=== PATIENT | male | born 1945 | race Caucasian/White ===

== ENCOUNTER 2018-07-26 07:13 | Day surgery (SDC) | payer MEDICARE, OTHER, SELFPAY ==
[2018-07-26 08:08] VITALS: BMI 22.9
[2018-07-26 08:14] VITALS: BP 137/73; PULSE 77; RESP 15; TEMP 36.4; O2SAT 98
[2018-07-26] MEDS: SODIUM CHLORIDE 0.9% 1,000 ML 21 ML IV (08:18)
--- NOTE | 2018-07-26 08:49 | PM.HP.1 ---
History of Present Illness Date Patient Seen: 07/26/18 Time Patient Seen: 08:50 Chief complaint: colonoscopy [id number] Narrative: Very pleasant and remarkably healthy 73-year-old gentleman presents for a surveillance colonoscopy. He reports the last colonoscopy was in 2012 and he had a polyp removed in the left colon at that time. Before that in 2006 he also had polyps. He has been on the every 5 year schedule for sometime now. He denies any new problems or symptoms related to the function of his GI tract. He denies any unexplained weight loss and reports he needs colonoscopy as part of his health maintenance program. Patient History Family & Social History Family History: Reviewed 07/26/18 by Gretchen Bustamante MD Social History: household members spouse Meds Home Medications Medication Instructions Recorded Confirmed Type glucosamine sulfate-msm 1,500 mg PO DAILY #0 09/12/16 07/26/18 History multivitamin [Multiple Vitamins] 1 tab PO QDAY #0 09/12/16 07/26/18 History omega 0-mjg-ocd-fish oil [Fish Oil] 350 mg PO DAILY #0 09/12/16 07/26/18 History Allergies Allergy/AdvReac Type Severity Reaction Status Date / Time No Known Drug Allergies Allergy Verified 07/26/18 08:05 Review of Systems Review of Systems All systems reviewed & are unremarkable except as noted in HPI and below Exam Vital Signs (past 8 hours): - 07/26/18 08:14 Temperature 97.6 F Pulse Rate 77 Respiratory Rate 15 Blood Pressure 137/73 Pulse Oximetry 98 Oxygen Delivery Method Room Air Narrative Exam Narrative: Very pleasant well-nourished well-developed gentleman. He appears much younger than his stated age. HEENT: Normocephalic and atraumatic, pupils equal round react to light accommodation with anicteric sclera Lungs: Clear to auscultation bilaterally Heart: Regular rate and rhythm without murmur rub or gallop Abdomen: Soft, nontender, active bowel sounds Extremities: Warm well perfused without edema Assessment & Plan Plan: Assessment/Plan Narrative: Very pleasant gentleman here for a screening colonoscopy. He has a personal history of colon polyps and his family history is otherwise negative for colon cancer. We discussed the risks and benefits of the procedure today and he has expressed desire to complete it.
[2018-07-26] MEDS: MIDAZOLAM 5 MG/5 ML VIAL IV (09:03)
[2018-07-26] MEDS: fentaNYL 250 MCG/5 ML INJ IV (09:04)
--- NOTE | 2018-07-26 09:13 | PM.OP.1 ---
Operative Date/Time/Diagnoses Date of procedure: 07/26/18 Time of procedure: 09:13 Pre-op diagnosis: Screening Post-op diagnosis: same Procedure & Clinicians Procedure: Colonoscopy to the Cecum Same procedure as scheduled: Yes Indications: Personal history of colon polyps Last colonoscopy 2012 Surgeon: Gretchen Bustamante Click Yes if Unassisted: Yes Anesthesia Type: Sedation (Versed 7 mg; fentanyl 250 mcg) Operative Notes Findings: 1. Excellent prep 2. No polyps or mass lesions 3. Tortuous sigmoid and transverse colons 4. Grade 2 internal hemorrhoids 5. Moderately decreased anal sphincter tone 6. Normal prostate examination. The surface is smooth and without gross nodularity Closure Type: not applicable Specimen(s): none sent Procedure in detail: After obtaining informed consent, the patient was brought to the GI suite and placed in the left lateral decubitus position on the examination table. After placement of appropriate monitors, the patient was given incremental doses of Versed and Fentanyl until an appropriate level of sedation was achieved. A time out was held per SCOAP protocol. A digital rectal examination was performed and did not reveal any masses or obstructing lesions. The colonoscope was gently passed into the patient's anus and the entire colon navigated to the level of the cecum with moderate difficulty due to colon tortuosity. Multiple changes of position were required to reach the cecum.. Once in the cecum, the scope was withdrawn being sure to go before and beyond all mucosal folds and prominences and get an excellent examination. The findings are noted above. At the level of the rectal vault, the scope was retroflexed and the internal anal canal was examined. The scope was straightened and air aspirated from the colon. The instrument was removed from the patient's body and the procedure was concluded. The patient was allowed to awaken from sedation without difficulty and taken to the post-anesthesia care unit in good condition. Total sedation time 23 min Total withdrawal time 9 min Complications: none Condition: stable Disposition: PACU Plan for aftercare: 1. Discharge to home 2. Plan for next colonoscopy in 5 years or as clinically indicated
[2018-07-26 09:17] VITALS: BP 121/65; PULSE 83; RESP 10; TEMP 36.5; O2SAT 97
[2018-07-26 09:22] VITALS: BP 118/66; PULSE 87; RESP 10; O2SAT 94
[2018-07-26 09:27] VITALS: BP 129/62; PULSE 90; RESP 12; TEMP 36.9; O2SAT 95
[2018-07-26 09:41] VITALS: BP 122/68; PULSE 77; RESP 16; TEMP 36.7; O2SAT 95
--- NOTE | 2018-07-26 09:49 | SUR.PHASEII ---
brought in, vss, ready to go, all voiced an understand, pt dressed with assist of and left in stable condition,
== END 2018-07-26 09:49 | disposition home or self-care (01) ==
PROVIDERS: PCP Family Medicine; Visit Provider Surgery
PROC: 0DJD8ZZ Inspection of Lower Intestinal Tract, Via Natural or Artificial Opening Endoscopic (ICD-10-PCS; CPT 45378; principal; 2018-07-26 08:45)
DX: Z86.010 Personal history of colon polyps (principal); K64.1 Second degree hemorrhoids
CPT/HCPCS: G0105; 99152; 99153; J2250; J3010

== ENCOUNTER → 2021-07-28 12:39 | Outpatient (CLI) | payer MEDICARE, OTHER, SELFPAY ==
--- NOTE | 2021-07-28 12:43 | DI.RAD.S_ITS ---
PROCEDURE: XR SHOULDER RT MIN 2V INDICATIONS: BI SHOULDER PAIN TECHNIQUE: 3 views of the shoulder were acquired. COMPARISON: [facility], , SHOULDER MINIMUM 2VIEW RIGHT, 08/26/2015, 10:50. FINDINGS: Bones: No fractures or dislocations. No suspicious bony lesions. Visualized ribs appear intact. Moderate acromioclavicular and mild glenohumeral degenerative narrowing. No erosions. Soft tissues: No suspicious soft tissue calcifications. 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 Dictated by: Henna Vieira M.D. on 07/28/2021 at 15:15 Approved by: Henna Viiera M.D. on 07/28/2021 at 15:16
--- NOTE | 2021-07-28 12:43 | DI.RAD.S_ITS ---
PROCEDURE: XR SHOULDER LT MIN 2V INDICATIONS: BI SHOULDER PAIN TECHNIQUE: 3 views of the shoulder were acquired. COMPARISON: [facility], , SHOULDER MINIMUM 2VIEW RIGHT, 08/26/2015, 10:50. FINDINGS: Bones: No fractures or dislocations. No suspicious bony lesions. Visualized ribs appear intact. Moderate bilateral acromioclavicular and mild glenohumeral degenerative narrowing. Soft tissues: No suspicious soft tissue calcifications. IMPRESSION: Degenerative narrowing as above. Dictated by: Henna Vieira M.D. on 07/28/2021 at 15:14 Approved by: Henna Vieira M.D. on 07/28/2021 at 15:15
== END ==
PROVIDERS: PCP Family Medicine; Referring Provider Family Medicine; Visit Provider Family Medicine
DX: M25.511 Pain in right shoulder (principal); M25.512 Pain in left shoulder
CPT/HCPCS: 73030

== ENCOUNTER → 2022-10-04 09:28 | Outpatient (CLI) | payer OTHER, SELFPAY ==
--- NOTE | 2022-10-04 | DI.NM.S_ITS ---
PROCEDURE: NM LALITA PERF SPECT REST & STR Rest and exercise myocardial perfusion SPECT with gated imaging and ejection fraction RADIOPHARMACEUTICAL: 26.6 mCi Tc-99m sestamibi IV at rest and 26.0 mCi Tc-99m sestamibi IV at peak exercise. A two day-protocol was performed. INDICATIONS: CHEST PAIN TECHNIQUE: Radiopharmaceutical was injected at peak stress test, and also at rest. SPECT images were obtained. SPECT myocardial perfusion images were displayed in short axis, horizontal long axis, and vertical long axis views. Gated images were reviewed using [employer] software. COMPARISON: None. CARDIAC STRESS: A standard Guillermo treadmill exercise tolerance test was performed by the patient under the supervision of an attending staff. The patient exercised for 7 minutes and 30 seconds; functional aerobic impairment (CHASTITY) is -28%. Hemodynamic data: There is normal blood pressure and heart rate response to exercise stress. Patient achieved 100% of maximum predicted heart rate at peak exercise. Symptoms: Patient denied chest pain during exercise. EKG: No diagnostic EKG changes of ischemia; frequent PVCs at peak exercise. FINDINGS: Raw data: There is good myocardial labeling by radiotracer. No significant motion artifacts. Left ventricle function: Gated images demonstrate normal left ventricle wall thickening. No segmental wall motion abnormality. No transient ischemic dilation; TID is 0.94 (normal less than 1.3). The left ventricle resting end-diastolic volume is 176 mL. Left ventricle stress ejection fraction is 62%; normal values are above 45%. Myocardial perfusion: There is a mildly intense fixed apical defect that is consistent with apical thinning defect but old small non-transmural infarction can't be excluded definitively. No ischemia. SSS 1. Prone images not done due to inadequate time. IMPRESSION: Low risk, probably normal treadmill nuclear stress test. 1) There is a mildly intense fixed apical defect that is consistent with apical thinning defect but old small non-transmural infarction can't be excluded definitively. No ischemia. SSS 1. Prone images not done due to inadequate time. 2) Enlarged left ventricle (resting EDV 176cc) with normal wall motion, and normal systolic function (EF post stress 62%). 3) No diagnostic ST changes with exercise. 4) Frequent PVCs at peak exercise. 5) No angina during the study. 6) Good exercise capacity (8.3METs, CHASTITY -28%). Target heart rate achieved. Appropriate BP response to exercise. 7) No prior nuclear stress test available for comparison. Dictated by: Marti Cordova MD on 10/05/2022 at 13:17 Approved by: Marti Cordova MD on 10/05/2022 at 13:21
[2022-10-04 10:15] LABS: COVID19 -Nasal RAPID Negative (Negative)
== END ==
PROVIDERS: PCP Family Medicine; Referring Provider Family Medicine; Visit Provider Family Medicine
DX: Z20.822 Contact with and (suspected) exposure to COVID-19; R07.9 Chest pain, unspecified
CPT/HCPCS: 78452; 87635; 93017; A9502

== ENCOUNTER → 2024-05-27 11:55 | Outpatient (CLI) | payer OTHER, SELFPAY ==
[2024-05-27 12:45] LABS: COVID-19 CEPHEID 4-PLEX PCR Negative (Negative); Influenza A - CEPHEID Flu A NEGATIVE (NEGATIVE); Influenza B - CEPHEID Flu B NEGATIVE (NEGATIVE); Respiratory Syncytial Virus Negative (Negative)
== END ==
PROVIDERS: PCP Family Medicine; Visit Provider Student in an Organized Health Care Education/Training Program
DX: R05.1 Acute cough (principal)
CPT/HCPCS: 0241U; 87070

== ENCOUNTER → 2024-05-27 12:36 | Outpatient (CLI) | payer OTHER, SELFPAY ==
--- NOTE | 2024-05-27 12:37 | DI.RAD.S_ITS ---
PROCEDURE: XR CHEST 2V INDICATIONS: cough, upper respiratory infection x 2wk, neg covid test at home, per notes TECHNIQUE: 2 views of the chest were acquired. COMPARISON: None. FINDINGS: [id number] bilateral diffuse peribronchial thickening with patchy opacities in the lower lobes some of which may be related to expiratory result and subsegmental atelectasis however given the history, bronchitis, viral infection, bronchopneumonia or other process could be considered. Mild pectus excavatum appearance of the chest. Mild degenerative changes of the thoracic spine. No pneumothorax, no pleural effusion, no lobar consolidation. Cardiopericardial silhouette and pulmonary vasculature within normal limits. IMPRESSION: [id number] bilateral peribronchial thickening with patchy opacities as discussed above, bronchitis, viral infection, bronchopneumonia or other process could be considered. Follow-up suggested. Mild pectus excavatum. Dictated by: Tommy Barcenas M.D. on 05/27/2024 at 12:46 Approved by: Tommy Barcenas M.D. on 05/27/2024 at 12:57
== END ==
LOC: RAD 12:37
PROVIDERS: PCP Family Medicine; Referring Provider Student in an Organized Health Care Education/Training Program; Visit Provider Student in an Organized Health Care Education/Training Program
DX: J06.9 Acute upper respiratory infection, unspecified (principal); M95.4 Acquired deformity of chest and rib
CPT/HCPCS: 0241U; 71046; 87070

== ENCOUNTER → 2024-06-28 09:50 | Outpatient (CLI) | payer OTHER, SELFPAY ==
--- NOTE | 2024-06-28 09:53 | DI.RAD.S_ITS ---
PROCEDURE: XR CHEST 2V INDICATIONS: Pneumonia, unspecified organism TECHNIQUE: 2 views of the chest were acquired. COMPARISON: [facility], CR, XR CHEST 2V, 05/27/2024, 12:35. FINDINGS: Surgical changes and devices: None. Lungs and pleura: Lungs are clear. No pleural effusions or pneumothorax. Mediastinum: Mediastinal contours are normal. Heart size is normal. Bones and chest wall: No suspicious bony abnormalities. Soft tissues appear unremarkable. IMPRESSION: No acute cardiopulmonary abnormality is seen. Dictated by: Rikki Do M.D. on 06/28/2024 at 13:30 Approved by: Rikki Do M.D. on 06/28/2024 at 13:31
== END ==
LOC: RAD 09:52
DX: J18.9 Pneumonia, unspecified organism (principal)
CPT/HCPCS: 71046